=== PATIENT | male | born 1945 | race Caucasian/White ===

== ENCOUNTER 2017-12-06 03:19 | Emergency (ER) | payer OTHER ==
[~2017-12-06] VITALS: Ht 182.9 cm; Wt 79.4 kg
[2017-12-06 03:39] VITALS: BP 100/63
== END 2017-12-06 04:56 ==
LOC: ER 03:19
DX: J96.91 Respiratory failure, unspecified with hypoxia (principal); J96.92 Respiratory failure, unspecified with hypercapnia; I46.9 Cardiac arrest, cause unspecified